=== PATIENT | male | born 1960 | race American Indian/Alaskan Native ===

== ENCOUNTER 2021-09-05 23:08 | Emergency (ER) | payer MEDICARE, OTHER ==
[2021-09-05 23:10] VITALS: BP 151/98
[2021-09-06] MEDS ORDERED: HYDROcodone/ACETAMINOPHEN 5-325 MG TAB PO ONE (00:09)
--- NOTE | 2021-09-06 00:49 | XRay Report ---
. LEFT SHOULDER 3 VIEWS INDICATION / CLINICAL INFORMATION: left shoulder pain COMPARISON: None available. FINDINGS: BONES / JOINT(S): No acute fracture or subluxation. There is mild acromioclavicular degenerative [place]. SOFT TISSUES: No significant abnormality. ADDITIONAL FINDINGS: None. Signer Name: Pa Quiles MD Signed: 09/06/2021 12:45 AM Workstation Name: [id number]
--- NOTE | 2021-09-06 02:05 | Emergency Department Report ---
ED General Adult HPI - General Chief complaint: Pain General Stated complaint: pain Time Seen by Provider: 09/06/21 02:02 Source: patient, EMS ( EMS documentation not available at time of chart dictation ), RN notes reviewed Mode of arrival: Stretcher Limitations: No Limitations - History of Present Illness Initial comments: The patient is a 60-year-old gentleman who typically [facility], presenting to the ER today with complaint of nontraumatic right-sided hand cramping, generalized weakness, left elbow pain, left bicep pain, left tricep pain, and left shoulder pain. These are nontraumatic. He typically follows with the [facility], and his past medical history includes recently diagnosed pulmonary embolism a few weeks ago, currently on Coumadin therapy, body mass index of 51, and hypertension. The patient is ambulatory at home with a walker. He reports that he is doing home physical therapy. The patient denies headache, neck pain, chest pain, abdominal pain, shortness of breath, urinary symptoms, extremity weakness and numbness. His pains are sharp, and increased with palpation and range of motion, and decreased with rest. He is not a diabetic that he is aware of. He reports that he has "done well" with diet lifestyle modifications, and reports that he has lost some weight by adhering to an appropriate diet. He does not have gout that he is aware of. -: Gradual Location: right (Right hand.), upper extremity (Left shoulder. Left elbow.) Severity scale (0 -10): 10 Quality: aching Consistency: constant Improves with: rest Worsens with: movement - Related Data Previous Rx's Medication Instructions Recorded Last Taken Type Acetaminophen [Acetaminophen 8 650 mg PO Q6HR PRN #30 tab 09/06/21 Unknown Rx Hour] Allergies Allergy/AdvReac Type Severity Reaction Status Date / Time No Known Allergies Allergy Unverified 09/05/21 23:11 ED Review of Systems ROS: Stated complaint: BODYACHES Other details as noted in HPI Constitutional: denies: fever Eyes: denies: eye discharge ENT: denies: epistaxis Respiratory: denies: cough Cardiovascular: denies: chest pain Gastrointestinal: denies: abdominal pain Musculoskeletal: back pain, arthralgia, myalgia Neurological: denies: weakness Hematological/Lymphatic: denies: easy bleeding ED Past Medical Hx - Past Medical History Previous Medical History?: Yes Hx Hypertension: Yes Additional medical history: BLOOD CLOTS - Surgical History Past Surgical History?: No - Medications Home Medications: Home Medications Medication Instructions Recorded Confirmed Last Taken Type Acetaminophen [Acetaminophen 8 650 mg PO Q6HR PRN #30 tab 09/06/21 Unknown Rx Hour] ED Physical Exam - General Limitations: No Limitations General appearance: obese - Head Head exam: Present: atraumatic, normocephalic - Eye Eye exam: Present: normal appearance, EOMI. Absent: nystagmus - ENT ENT exam: Present: normal exam, normal orophraynx, mucous membranes moist, normal external ear exam - Neck Neck exam: Present: normal inspection, full ROM. Absent: tenderness, men ingismus - Respiratory Respiratory exam: Present: normal lung sounds bilaterally. Absent: respiratory distress, wheezes, rales, rhonchi, stridor, decreased breath sounds - Cardiovascular Cardiovascular Exam: Present: regular rate, normal rhythm, normal heart sounds. Absent: bradycardia, tachycardia, irregular rhythm, systolic murmur, diastolic murmur, rubs, gallop - GI/Abdominal GI/Abdominal exam: Present: soft. Absent: distended, tenderness, guarding, rebound, rigid, pulsatile mass - Rectal Rectal exam: Present: deferred - Extremities Exam Extremities exam: Present: normal inspection, full ROM (Right upper extremity. Right lower extremity.), tenderness (There is point tenderness to the left shoulder, and left elbow. There is no redness, pus or streaking in the upper or lower extremities.), other (2+ pulses noted in the bilateral upper and lower extremities. There is no long bony tenderness. The muscular compartments are soft. The pelvis is stable. Patient reports chronic left leg pain.Patient reports chronic left calf tenderness.) - Back Exam Back exam: Present: normal inspection. Absent: tenderness, CVA tenderness (R), CVA tenderness (L), paraspinal tenderness, vertebral tenderness - Neurological Exam Neurological exam: Present: alert, oriented X3, other (No facial droop. Tongue midline. Extraocular movements intact bilaterally. Facial sensation intact to light touch in V1, V2, V3 distribution bilaterally. 5 and a 5 strength in 4 extremities. Sensation intact to light touch in 4 extremities.). Absent: motor sensory deficit - Psychiatric Psychiatric exam: Present: normal affect, normal mood - Skin Skin exam: Present: warm, dry, intact, normal color. Absent: rash ED Course Vital Signs 09/05/21 09/06/21 23:09 00:51 Temperature 98.3 F Pulse Rate 105 H Respiratory 16 16 Rate Blood Pressure 151/98 [Right] O2 Sat by Pulse 97 Oximetry - Reevaluation(s) Reevaluation #1: 09/06/21 03:24 Differential diagnosis, include but not limited to: Arthritis, myalgias, elevated CK, gout, sprain, strain Electrolyte range Assessment and plan: 60-year-old gentleman, who reports that he is ambidextrous, presenting with nontraumatic left shoulder pain, nontraumatic left elbow pain, diffuse myalgias, and cramping. His tachycardia is resolved. He is afebrile, with reassuring vital signs, without evidence of redness, pus or streaking. Range of motion gently intact for left elbow, and partially intact for left shoulder. X-rays show no fracture or dislocation. Obtain appropriate laboratory studies to exclude electrolyte derangement and rhabdomyolysis. Treat patient's symptoms. Have ordered case management consultation for physical therapy evaluation and treat. Reassess after laboratory studies have resulted. Patient reports compliance with Coumadin, and also reports that he is not having any chest pain or new/different shortness of breath at this time 09/06/21 04:08 X-rays show no fracture or dislocation. Laboratory studies nonactionable. Patient found to have subtherapeutic INR. He advises that he takes 5 mg of Coumadin daily. Advised him to temporarily increase dose to 10 mg, and to closely follow-up with outpatient primary care for repeat checkup and evaluation ED Medical Decision Making - Lab Data Result diagrams: 09/06/21 02:59 09/06/21 02:59 Vital Signs 09/05/21 09/06/21 23:09 00:51 Temperature 98.3 F Pulse Rate 105 H Respiratory 16 16 Rate Blood Pressure 151/98 [Right] O2 Sat by Pulse 97 Oximetry Lab Results 09/06/21 09/06/21 Range/Units 02:59 02:59 WBC 6.3 (4.5-11.0) K/mm3 RBC 4.57 (3.65-5.03) M/mm3 Hgb 13.4 (11.8-15.2) gm/dl Hct 39.1 (35.5-45.6) % MCV 86 (84-94) fl MCH 29 (28-32) pg MCHC 34 (32-34) % RDW 14.9 (13.2-15.2) % Plt Count 337 (140-440) K/mm3 PT 14.9 (12.2-14.9) Sec. INR 1.05 (0.87-1.13) - EKG Data -: EKG Interpreted by Md EKG shows normal: sinus rhythm Rate: normal - EKG Data 09/06/21 04:13 The EKG is interpreted at 03: 32 Sinus rhythm, rate 93 bpm. Normal axis, normal P wave axis, PVC, intervals otherwise within normal limits. The EKG has nonspecific abnormalities. The EKG is not a STEMI. - Radiology Data Radiology results: pending, report reviewed, image reviewed . LEFT SHOULDER 3 VIEWS INDICATION / CLINICAL INFORMATION: left shoulder pain COMPARISON: None available. FINDINGS: BONES / JOINT(S): No acute fracture or subluxation. There is mild acromioclavicular degenerative change. SOFT TISSUES: No significant abnormality. ADDITIONAL FINDINGS: None. Signer Name: Pa Quiles MD Signed: 09/05/2021 11:45 PM Workstation Name: [id number] Critical care attestation.: If time is entered above; I have spent that time in minutes in the direct care of this critically ill patient, excluding procedure time. ED Disposition Clinical Impression: Left shoulder pain, Left elbow pain, Body mass index (BMI) of 50-59.9 in adult, Muscle cramping Disposition: 01 HOME / SELF CARE / HOMELESS Is pt being admited?: No Does the pt Need Aspirin: No Condition: Good Additional Instructions: Apply ice packs and heat packs to joints as needed for physical pain. Patient may take the prescribed Tylenol as needed for physical pain. Patient was found to have a subtherapeutic Coumadin level/INR. Recommend that patient increase Coumadin to 10 mg daily, as patient reported that he was taking 5 mg daily. Recommend follow-up with your outpatient primary care doctor within 48 to 72 hours for repeat INR/Coumadin level check. Patient may need physical therapy and rehabilitation for hand cramping, left shoulder pain, and left elbow pain. We do recommend follow-up with your primary care doctor to assist in coordinating this. In addition, in case management and physical therapy/rehabilitation consults have been placed in the computer system, and the patient should receive a phone call at the number that he is provided to coordinate this. Please continue to use walker at home. Do not take Motrin, ibuprofen, Naprosyn, Aleve. Please return to the emergency room right away with new pain, worsened pain, migration of pain, projectile vomiting, change in mental status, confusion, inability tolerate liquid feeds, new, worsened or different symptoms not present on the initial emergency room evaluation Prescriptions: Acetaminophen [Acetaminophen 8 Hour] 650 mg PO Q6HR PRN #30 tab PRN Reason: Pain , Severe (7-10) Referrals: [facility] [Provider Group] - 3-5 Days
[2021-09-06] MEDS ORDERED: ACETAMINOPHEN 325 MG TAB PO STA (02:27)
[2021-09-06 03:14] LABS: Hematocrit 39.1 % (35.5-45.6); Hemoglobin 13.4 gm/dl (11.8-15.2); Mean Corpuscular HGB Conc 34 % (32-34); Mean Corpuscular Volume 86 fl (84-94); Platelet Count 337 K/mm3 (140-440); Red Blood Count 4.57 M/mm3 (3.65-5.03); Red Cell Distribution Width 14.9 % (13.2-15.2)
[2021-09-06 03:25] LABS: INR 1.05 (0.87-1.13)
[2021-09-06 03:26] LABS: Partial Thromboplastin Time 31.9 Sec. (24.2-36.6)
[2021-09-06 03:34] LABS: Alanine Aminotransferase 6 units/L (7-56); Albumin 3.4 g/dL (3.9-5); BUN/Creatinine Ratio 15; Blood Urea Nitrogen 18 mg/dL (9-20); Calcium 9.6 mg/dL (8.4-10.2); Hemolysis Index 8
--- NOTE | 2021-09-06 04:01 | XRay Report ---
LEFT ELBOW 4 VIEWS INDICATION / CLINICAL INFORMATION: left elbow pain COMPARISON: None available. FINDINGS: BONES / JOINT(S): No acute fracture or subluxation. No significant arthritis. SOFT TISSUES: No significant abnormality. ADDITIONAL FINDINGS: None. Signer Name: Pa Quiles MD Signed: 09/06/2021 3:57 AM Workstation Name: [id number]
[2021-09-06] MEDS ORDERED: ENOXAPARIN 100 MG/1 ML INJ SUB-Q ONE (04:11)
--- NOTE | 2021-09-06 13:29 | Electrocardiograph Report ---
[facility] Test Date: 2021-09-06 Test Time: 03:32:14 Pat Name: ADORE SOMMERS Department: Room: Gender: M Chart Picker: NURSE : [id number] Requested By: WAYNE GO Order Number: [id number] Reading MD: Waleska Carpenter Measurements Intervals [place] Rate: 93 P: 39 ND: 186 QRS: 36 QRSD: 94 T: 70 QT: 348 QTc: 433 Interpretive Statements Sinus rhythm Frequent PACs No previous ECG available for comparison Electronically Signed On 09-06-2021 13:29:13 EST by Waleska Carpenter
== END 2021-09-06 07:58 | disposition home or self-care (01) ==
LOC: ED 23:08
DX: M25.512 Pain in left shoulder (principal); M25.522 Pain in left elbow; Z68.43 Body mass index [BMI] 50.0-59.9, adult; R25.2 Cramp and spasm; I10 Essential (primary) hypertension
CPT/HCPCS: 36415; 80053; 82550; 83735; 85027; 85610; 85730; 93005; 93010; 99284